=== PATIENT | male | born 1995 | race Caucasian/White ===

== ENCOUNTER 2017-03-02 15:23 | Emergency (ER) | payer OTHER ==
[~2017-03-02] VITALS: Ht 190.5 cm; Wt 127.2 kg
[2017-03-02] MEDS ORDERED: NS 1,000 ML IV SCH (16:17)
[2017-03-02] MEDS ORDERED: MORPHINE 2 MG/ML 1ML SYRINGE IV PRN (16:30)
[2017-03-02] MEDS ORDERED: ONDANSETRON 4MG/2ML VIAL (J2405) IV ONE (16:30)
[2017-03-02] MEDS ORDERED: GASTROGRAFIN SOLUTION 30ML (Q9963) As Ordered ONE (16:32)
[2017-03-02] MEDS ORDERED: GASTROGRAFIN SOLUTION 30ML PO ONE (16:40)
[2017-03-02 16:45] LABS: BASO % 0.2 % (0.0-1.0); EOS % 0.5 % (0.0-3.0); LARGE UNSTAINED CELL # 0.1 K/mm3 (0.0-0.4); LARGE UNSTAINED CELL % 1.8 % (0.0-4.0); LYMPH # 1.5 K/mm3 (1.5-6.5); LYMPH % 17.5 % (24.0-44.0); MEAN CORPUSCULAR HEMOGLOBIN 29.9 pg (27.0-33.0); MEAN CORPUSCULAR HGB CONC 34.3 g/dl (32.0-36.5); MEAN CORPUSCULAR VOLUME 87.1 fl (80.0-96.0); MONO # 0.7 K/mm3 (0.0-0.8); MONO % 8.5 % (0.0-5.0); NEUTROPHILS # 5.4 K/mm3 (1.8-7.7); NEUTROPHILS % 71.3 % (36.0-66.0); PLATELET COUNT, AUTOMATED 211 k/mm3 (150-450); RED CELL DISTRIBUTION WIDTH 12.4 % (11.5-14.5); WHITE BLOOD COUNT 7.6 K/mm3 (4.0-10.0)
[2017-03-02 17:08] LABS: ALBUMIN/GLOBULIN RATIO 1.08 (1.00-1.93); ALKALINE PHOSPHATASE 75 U/L (45-117); ALT/SGPT 38 U/L (12-78); ANION GAP 6 MEQ/L (8-16); AST/SGOT 15 U/L (15-37); BILIRUBIN,DIRECT 0.2 MG/DL (0.0-0.2); BILIRUBIN,TOTAL 0.7 MG/DL (0.2-1.0); BLOOD UREA NITROGEN 11 MG/DL (7-18); CALCIUM LEVEL 9.6 MG/DL (8.5-10.1); CARBON DIOXIDE LEVEL 29 MEQ/L (21-32); CHLORIDE LEVEL 103 MEQ/L (98-107); CREATININE FOR GFR 1.14 MG/DL (0.70-1.30); GLOMERULAR FILTRATION RATE > 60.0 (>60); GLUCOSE, FASTING 96 MG/DL (70-105); SODIUM LEVEL 138 MEQ/L (136-145); TOTAL PROTEIN 7.7 GM/DL (6.4-8.2)
[2017-03-02] MEDS ORDERED: GASTROGRAFIN SOLUTION 30ML (Q9963) PO ONE (17:10)
[2017-03-02] MEDS ORDERED: ISOVUE-370 76% 100ML VIAL (Q9967) As Ordered ONE (17:52)
--- NOTE | 2017-03-02 18:30 | REPUSA ---
CT of the abdomen and pelvis with contrast Clinical statement: Pain. Technique: Multiple axial CT images were obtained from the base of the lungs through the floor of the pelvis utilizing 5 mm axial slices after administration of oral and nonionic intravenous contrast. C oronal and sagittal reconstructions were also obtained. Comparison: None. Findings: Chest: The visualized lung bases are clear. Abdomen: The liver, spleen, pancreas, kidneys, gallbladder, and adrenal glands are unremarkable. The aorta is within normal limits. There is no evidence of abdominal lymphadenopathy or ascites. Pelvis: There is an umbilical hernia containing a small collection of fluid, measuring 2.9 x 1.7 cm. No herniation of bowel is seen. The bowel is unremarkable, with no obstructive or inflammatory friedman es. The appendix is normal. The urinary bladder is within normal limits. The other pelvic structures appear grossly intact. There is no evidence of pelvic lymphadenopathy or ascites. Bones: There are no suspicious osseous abnormalities seen. Impression: 1. Small umbilical hernia containing a small collection of fluid as described. Access at the site can not be completely excluded. No significant herniation of omental fat is seen. There is no evidence of bowel herniation. 2. The remainder of the study is unremarkable.
[2017-03-02] MEDS ORDERED: PIPERACILLIN/TAZOBACTAM SOD 3.375 GM in D5W MINI-BAG PLUS 50 ML IV ONE (19:00)
[2017-03-02] MEDS ORDERED: FLAG500T PO (19:21)
[2017-03-02] MEDS ORDERED: KEFL500C17 PO (19:21)
[2017-03-02] MEDS ORDERED: NORCOTAB PO (19:33)
[2017-03-02 19:44] VITALS: BP 127/68
--- NOTE | 2017-03-03 10:33 | ED PDOC ---
Post-Departure Follow-Up dr cuellar faxed formal report of ct abd/p for fu Neris Darnell MD Mar 03, 2017 10:33
== END 2017-03-02 19:47 | disposition home or self-care (01) ==
LOC: M ED 15:23
DX: K42.9 Umbilical hernia without obstruction or gangrene (principal)
CPT/HCPCS: 74177; 80048; 80076; 83605; 85025; 96374; 96376; 99283; J2405; J2543; Q9963; Q9967

== ENCOUNTER → 2020-11-05 | Outpatient (CLI) | payer BC ==
[~2020-11-05] MED LIST: FLAG500T PO; HYDR-3715 PO; KEFL500C17 PO
--- NOTE | 2020-11-05 16:05 | PFTRPT ---
Site: [facility], [address] [place] [address], [id number] ID: [id number] Name: KESHIA MARQUEZ Visit Date: 11/05/2020 Second ID: [id number] Referring Doctor: Pam Basilio Reviewing Doctor: Venu Chaudhari MD Manager Marketing Communications: Pattie CASTRO RRT Age: 25 : 1995 Sex: Male Race: Height: 75.00 Inches Weight: 280.00 Lbs BSA: 2.53 Order IDs: [id number] Requested Test(s): <RESP-PFT.PFT B/A> Diagnosis: R06.02 test meet the ATS standards for acceptability and repeatability. Pt was given four puffs of albuterol for post bronchodilator. Review Status: Not Reviewed Pre-Bronch Post-Bronch Pred Actual %Pred Actual %Chng SPIROMETRY FVC (L) 6.39 5.74 89 5.62 -2 FEV1 (L) 5.18 4.32 83 4.52 4 FEV1/FVC (%) 82 75 91 80 6 FEF 25% (L/sec) 9.82 6.33 64 8.23 30 FEF 50% (L/sec) 6.33 3.72 58 4.70 26 FEF 75% (L/sec) 2.50 1.74 69 1.91 9 FEF 25-75% (L/sec) 5.08 3.34 65 3.96 18 FEF Max (L/sec) 11.40 8.73 76 9.85 12 FIVC (L) 5.73 5.72 FIF 50% (L/sec) 5.57 9.46 169 9.56 1 FIF Max (L/sec) 9.48 9.55 MVV (L/min) 198 154 77 Expiratory Time (sec) 6.42 6.49 1 Back Extrap Vol (L) 0.12 0.13 13 Time To FEFmax (sec) 0.083 0.083 LUNG VOLUMES SVC (L) 6.06 5.71 94 IC (L) 3.95 5.05 127 ERV (L) 2.11 0.66 31 TGV (L) 3.95 3.16 79 RV (Pleth) (L) 1.84 2.50 135 TLC (Pleth) (L) 7.90 8.21 103 RV/TLC (Pleth) (%) 23 30 132 DIFFUSION DLCOunc (ml/min/mmHg) 37.98 38.64 101 DL/VA (ml/min/mmHg/L) 4.81 5.26 109 VA (L) 7.90 7.35 93 BHT (sec) 9.59 IVC (L) 5.71 TLC (SB) (L) 7.50 AIRWAYS RESISTANCE Raw (cmH2O/L/s) 1.45 0.79 54 Gaw (L/s/cmH2O) 1.03 1.26 122 sRaw (cmH2O*s) 4.76 2.61 54 sGaw (1/cmH2O*s) 0.20 0.38 191
== END ==
LOC: M CARPUL 15:24
PROVIDERS: ATTEND Nurse Practitioner Adult Health
DX: R06.02 Shortness of breath (principal)

== ENCOUNTER → 2020-11-14 | Outpatient (CLI) | payer BC ==
[~2020-11-14] MED LIST changes: +METHACHOLINE KIT (J7674) INH ONE
--- NOTE | 2020-11-14 13:54 | PFTRPT ---
Height: 75.00 Inches Weight: 280.00 Lbs BSA: 2.53 Diagnosis: R06.02 DATE: 11/14/2020 ORDERED BY: MIGUELITO Vance QUALITY: Study of excellent technical quality. PROCEDURE: Under protocol, methacholine was administered. Even after a maximal dose of 25 mg or 188.875 CDUs, no provocation dose ever achieved. IMPRESSION: Negative methacholine challenge study. MTDD
== END ==
LOC: M CARPUL 12:43
PROVIDERS: ATTEND Nurse Practitioner Adult Health
DX: R06.02 Shortness of breath (principal)
CPT/HCPCS: 94070; J7674

== ENCOUNTER → 2022-09-18 | Outpatient (CLI) | payer BC ==
[~2022-09-18] MED LIST changes: -METHACHOLINE KIT (J7674) INH ONE
== END ==
LOC: M SLEEP HO 14:36
PROVIDERS: ATTEND Physician Assistant
DX: G47.33 Obstructive sleep apnea (adult) (pediatric) (principal); R40.0 Somnolence; R06.83 Snoring